=== PATIENT | male | born 1970 | race Caucasian/White ===

== ENCOUNTER → 2021-12-13 | Outpatient (CLI) | payer OTHER ==
--- NOTE | 2021-12-13 13:26 | RAD ---
XR HAND_RIGHT 3 VIEWS DATE: 12/13/2021 11:55 AM INDICATION: PAIN, FALL LAST NIGHT COMPARISON: None. FINDINGS: Bones: There is no evidence of acute fracture or dislocation. Joints: Mild degenerative changes of the first CMC joint and radiocarpal joint. Miscellaneous: None. IMPRESSION: No evidence of acute fracture. Electronically signed by: Sean Ocampo MD (12/13/2021 1:23 PM) [id number]
== END ==
LOC: RAD 11:47
PROVIDERS: ATTEND Registered Nurse
DX: M19.041 Primary osteoarthritis, right hand (principal); M79.641 Pain in right hand
CPT/HCPCS: 73130